=== PATIENT | male | born 1965 | race Caucasian/White ===

== ENCOUNTER 2019-09-11 14:02 | Emergency (ER) | payer SELFPAY ==
[~2019-09-11] VITALS: Ht 172.7 cm; Wt 82.0 kg
[2019-09-11 15:00] VITALS: BP 106/80
== END 2019-09-11 15:01 | disposition left against medical advice (07) ==
LOC: ER 14:02
DX: R55 Syncope and collapse (principal); R05 Cough; R09.81 Nasal congestion; E11.9 Type 2 diabetes mellitus without complications; I10 Essential (primary) hypertension
CPT/HCPCS: 99283